=== PATIENT | male | born 1970 | race Caucasian/White ===

== ENCOUNTER 2018-06-05 22:23 | Inpatient (IN) | payer MEDICAID ==
[~2018-06-05] VITALS: Ht 172.7 cm; Wt 89.9 kg
[2018-06-05 22:41] VITALS: Ht 172.7 cm; Wt 89.9 kg
[2018-06-05 23:04] LABS: BASOPHIL % 0.6 % (0-2); PLATELET COUNT 176 x10^3mcL (130-400); RED CELL DISTRIBUTION WIDTH 12.9 % (11.5-14.5)
[2018-06-05 23:21] LABS: CALCIUM 7.5 mg/dL (8.5-10.1); CARBON DIOXIDE 26.8 mmol/L (21-32); CHLORIDE SERUM 93 mmol/L (98-107); CREATININE SERUM 0.8 mg/dL (0.7-1.3); GFR1 > 60 mL/min; GLUCOSE SERUM 121 mg/dL (74-106); POTASSIUM SERUM 3.9 mmol/L (3.5-5.1); SODIUM SERUM 128 mmol/L (136-145)
[2018-06-05 23:26] LABS: ALBUMIN 3.4 g/dL (3.4-5.0); ALKALINE PHOSPHATASE 129 U/L (46-116); ALT/SGPT 658 U/L (16-63); AST/SGOT 883 U/L (15-37); BILIRUBIN TOTAL 2.28 mg/dL (0.20-1.00); TOTAL PROTEIN, SERUM 6.5 g/dL (6.4-8.2)
[2018-06-05 23:48] LABS: UA SPECIFIC GRAVITY 1.015 (1.005-1.035); microscopic required? YES; urine erythrocyte 2+ (NEGATIVE)
[2018-06-06 02:12] LABS: CHOLESTEROL/HDL RATIO 3.2; MAGNESIUM 1.9 mg/dL (1.8-2.4); PHOSPHOROUS 4.1 mg/dL (2.5-4.9); T3 TOTAL 0.36 ng/mL
[2018-06-06 02:21] LABS: FREE T4 1.34 ng/dL (0.76-1.46); FREE THYROXINE INDEX 2.9 ug/dL (1.4-4.5); T4(THYROXINE) 6.9 ug/dL (4.7-13.3)
[2018-06-06 03:23] VITALS: BP 135/75
[2018-06-06 05:45] LABS: AMPHETAMINE QUAL UR NONE DETECTED (See below)
[2018-06-06 06:07] LABS: RED CELL DISTRIBUTION WIDTH 12.7 % (11.5-14.5)
[2018-06-06 06:29] LABS: ALKALINE PHOSPHATASE 115 U/L (46-116); ALT/SGPT 664 U/L (16-63); AST/SGOT 908 U/L (15-37); BILIRUBIN DIRECT 1.61 mg/dL (0.0-0.2); BILIRUBIN TOTAL 2.22 mg/dL (0.20-1.00); CALCIUM 7.3 mg/dL (8.5-10.1); CARBON DIOXIDE 27.2 mmol/L (21-32); CHLORIDE SERUM 99 mmol/L (98-107); CREATININE SERUM 0.7 mg/dL (0.7-1.3); GFR1 > 60 mL/min; GLUCOSE SERUM 89 mg/dL (74-106); POTASSIUM SERUM 4.2 mmol/L (3.5-5.1); SODIUM SERUM 135 mmol/L (136-145)
[2018-06-06 06:31] VITALS: BP 120/74
[2018-06-06 06:33] LABS: ALBUMIN 2.9 g/dL (3.4-5.0); TOTAL PROTEIN, SERUM 5.7 g/dL (6.4-8.2)
[2018-06-06 06:42] LABS: PLATELET COUNT 128 x10^3mcL (130-400)
[2018-06-06 08:53] VITALS: BP 129/75
[2018-06-06 11:17] LABS: BAND NEUTROPHIL 2 % (0-10); BASOPHIL 0 % (0-2); MONOCYTE 6 % (0-7); PLATELET MORPHOLOGY PLATELETS NORMAL; SEGMENTED NEUTROPHILS 64 % (37-75)
[2018-06-06 14:00] VITALS: BP 127/70
[2018-06-06 16:55] VITALS: BP 136/85
[2018-06-06 17:26] LABS: BILIRUBIN DIRECT 2.33 mg/dL (0.0-0.2); BILIRUBIN TOTAL 2.9 mg/dL (0.20-1.00)
[2018-06-06 17:49] LABS: TOTAL PROTEIN, SERUM 5.9 g/dL (6.4-8.2)
[2018-06-06 21:08] VITALS: BP 126/88
[2018-06-07 05:01] LABS: RED CELL DISTRIBUTION WIDTH 13.2 % (11.5-14.5)
[2018-06-07 05:19] LABS: PLATELET COUNT 92 x10^3mcL (130-400)
[2018-06-07 05:35] LABS: CALCIUM 7.5 mg/dL (8.5-10.1); CARBON DIOXIDE 28.4 mmol/L (21-32); CHLORIDE SERUM 102 mmol/L (98-107); CREATININE SERUM 0.7 mg/dL (0.7-1.3); GFR1 > 60 mL/min; GLUCOSE SERUM 99 mg/dL (74-106); SODIUM SERUM 137 mmol/L (136-145)
[2018-06-07 05:39] VITALS: BP 142/87
[2018-06-07 06:11] LABS: MONOCYTE 12 % (0-7); SEGMENTED NEUTROPHILS 60 % (37-75)
[2018-06-07 06:13] LABS: PLATELET MORPHOLOGY PLATELETS DECREASED; rbc morphology (normal/abnorm) NORMAL (NORMAL)
[2018-06-07 17:05] VITALS: BP 125/84
[2018-06-07 21:14] VITALS: BP 120/80
[2018-06-08 04:23] VITALS: BP 126/78
[2018-06-08 06:56] LABS: CHLORIDE SERUM 103 mmol/L (98-107); CREATININE SERUM 0.8 mg/dL (0.7-1.3); GFR1 > 60 mL/min; GLUCOSE SERUM 108 mg/dL (74-106); POTASSIUM SERUM 3.8 mmol/L (3.5-5.1); SODIUM SERUM 140 mmol/L (136-145)
[2018-06-08 07:05] LABS: BASOPHIL % 0.6 % (0-2); PLATELET COUNT 86 x10^3mcL (130-400); RED CELL DISTRIBUTION WIDTH 13.2 % (11.5-14.5)
[2018-06-08 08:03] VITALS: BP 124/86
[2018-06-08 12:19] VITALS: BP 125/88
[2018-06-08 16:50] VITALS: BP 113/79
[2018-06-08 20:54] VITALS: BP 134/82
[2018-06-09 05:47] VITALS: BP 117/76
[2018-06-09 11:20] LABS: BILIRUBIN DIRECT 0.61 mg/dL (0.0-0.2); BILIRUBIN TOTAL 0.88 mg/dL (0.20-1.00); TOTAL PROTEIN, SERUM 6.3 g/dL (6.4-8.2)
[2018-06-09 11:40] VITALS: BP 117/76
== END 2018-06-09 12:05 | disposition home or self-care (01) | DRG 241 ==
LOC: ED 22:23 → MU 06-06 01:29 → DU 06-07 22:33
PROVIDERS: Emergency Medicine; Internal Medicine Gastroenterology; ADMIT Family Medicine
DX: K29.20 Alcoholic gastritis without bleeding (principal); K70.10 Alcoholic hepatitis without ascites; E44.1 Mild protein-calorie malnutrition; E87.1 Hypo-osmolality and hyponatremia; E83.51 Hypocalcemia; K86.81 Exocrine pancreatic insufficiency; F10.20 Alcohol dependence, uncomplicated; Y90.0 Blood alcohol level of less than 20 mg/100 ml; R74.0 Nonspecific elevation of levels of transaminase and lactic acid dehydrogenase [LDH]; R73.03 Prediabetes; Z59.0 Homelessness; Z68.30 Body mass index [BMI] 30.0-30.9, adult
CPT/HCPCS: 84439; G0480; J1885; J2060; J2270; J2405; J2543; J3010; J7030; Q0092